=== PATIENT | male | born 1960 | race Two or more races ===

== ENCOUNTER 2022-09-15 11:54 | Emergency (ER) | payer MEDICARE, MEDICAID ==
[~2022-09-15] VITALS: Ht 170.2 cm; Wt 72.0 kg
[2022-09-15 12:25] VITALS: BP 154/58
[2022-09-15] MEDS ORDERED: IBUPROFEN 600MG TABLET PO STA (12:30)
[2022-09-15 13:06] LABS: BASOPHILS % 0.4 % (0.0-2.0); EOSINOPHILS % 2.5 % (0.0-5.0); HEMATOCRIT. 42.6 % (42.0-52.0); HEMOGLOBIN. 14.3 g/dL (14.0-18.0); LYMPHOCYTES % 21.3 % (20.0-50.0); MEAN CORPUSCULAR HEMOGLOBIN 30.8 pg (28.0-32.0); MEAN CORPUSCULAR VOLUME 91.6 fL (80.0-94.0); MONOCYTES % 6.2 % (2.0-8.0); NEUTROPHILS % 69.6 % (40.0-76.0); RED BLOOD CELL COUNT 4.64 mill/uL (4.7-6.1); RED CELL DISTRIBUTION WIDTH 13.4 % (11.6-14.6)
[2022-09-15 13:09] LABS: CHLORIDE 113 mEq/L (98-107)
[2022-09-15 13:54] LABS: PLATELET ESTIMATE NORMAL
[2022-09-15 13:55] LABS: PLATELET 175 x1000/uL (130-400)
[2022-09-15] MEDS ORDERED: IBUPROFEN 600MG TABLET PO NR (15:15)
== END 2022-09-15 19:00 | disposition hospice, inpatient (51) ==
LOC: ER 11:54
DX: R53.1 Weakness (principal); Z59.00 Homelessness unspecified; R20.0 Anesthesia of skin
CPT/HCPCS: 36415; 74018; 80053; 84484; 85025; 93005; 99285